=== PATIENT | female | born 1975 | race Caucasian/White ===

== ENCOUNTER 2019-02-16 17:05 | Emergency (ER) | payer MEDICAID ==
[~2019-02-16] VITALS: Ht 152.4 cm; Wt 68.0 kg
[~2019-02-16 17:05] MED LIST: DIPHENHYDRAMINE; LORAZEPAM; ZOLPIDEM
[2019-02-16 22:13] VITALS: BP 121/70
== END 2019-02-16 22:14 | disposition home or self-care (01) ==
LOC: ER 17:31
DX: S59.801A Other specified injuries of right elbow, initial encounter (principal); S99.811A Other specified injuries of right ankle, initial encounter; F41.9 Anxiety disorder, unspecified; E78.00 Pure hypercholesterolemia, unspecified; Z98.890 Other specified postprocedural states; W01.0XXA Fall on same level from slipping, tripping and stumbling without subsequent striking against object, initial encounter; Y93.89 Activity, other specified; Y92.89 Other specified places as the place of occurrence of the external cause; Y99.8 Other external cause status
CPT/HCPCS: 73080; 73610; 99283

== ENCOUNTER 2022-01-05 00:14 | Emergency (ER) | payer MEDICAID ==
[~2022-01-05] VITALS: Ht 152.4 cm; Wt 68.0 kg
[2022-01-05] MEDS ORDERED: KETOROLAC 60MG/2ML VIAL IM ONE (02:45)
[2022-01-05 04:03] VITALS: BP 113/75
[2022-01-05] MEDS ORDERED: IBUP-2029 MT (04:07)
== END 2022-01-05 04:28 | disposition home or self-care (01) ==
LOC: ER 00:14
DX: M54.2 Cervicalgia (principal); M25.571 Pain in right ankle and joints of right foot; Z98.890 Other specified postprocedural states
CPT/HCPCS: 72125; 73610; 96372; 99284; J1885